=== PATIENT | female | born 1965 | race Caucasian/White ===

== ENCOUNTER 2017-08-01 04:02 | Emergency (ER) | END 2017-08-01 09:51 | disposition home or self-care (01) ==

== ENCOUNTER 2017-08-03 12:16 | Emergency (ER) | END 2017-08-03 16:32 | disposition home or self-care (01) ==

== ENCOUNTER 2017-11-30 21:18 | Emergency (ER) | END 2017-12-01 01:23 | disposition home or self-care (01) ==

== ENCOUNTER 2018-04-28 03:38 | Emergency (ER) | payer OTHER ==
[~2018-04-28] VITALS: Wt 57.8 kg
[~2018-04-28 03:38] MED LIST: ACET-915; ACET500C5 PO; DENIES; DIC20 PO; HYDR-3980 PO; MAGN296S40 PO; NAPR-985 PO; OMEP40CA6 PO; ONDA4TAB14 PO; POLY17PO6 PO
--- NOTE | 2018-04-28 03:49 | ERD ---
ER Documentation Chief Complaint Chief Complaint AP HPI The patient is a 52-year-old female, presenting to the ER because of epigastric abdominal pain that began around 8 PM tonight, had similar symptoms previously, denies fever, chills, neck pain, chest pain, dyspnea, vomiting, dysuria, diarrhea. She is smokes, denies drinking, denies illicit drug Past medical history: None Past surgical history: Cholecystectomy, ROS All systems reviewed and are negative except as per history of present illness. Medications Home Meds Active Scripts Pantoprazole* (Protonix*) 40 Mg Tablet., 40 MG PO DAILY, #20 TAB Prov:GIUSEPPE CAZARES MD 04/28/18 Discontinued Reported Medications Acetaminophen* (Tylenol*) 325 Mg Tab 05/24/10 [Denies] No Conflict Check 06/05/09 Discontinued Scripts Naproxen* (Naprosyn*) 500 Mg Tablet, 500 MG PO BID PRN for PAIN AND/OR INFLAMMATION for 10 Days, #20 TAB Prov:KIZZYSINDY 12/01/17 Acetaminophen* (Tylophen*) 500 Mg Capsule, 1 CAP PO Q6H PRN for PAIN AND OR ELEVATED TEMP, #20 CAP Prov:DEVENDRA NINA MD 08/03/17 Ondansetron (Ondansetron Odt) 4 Mg Tab.rapdis, 4 MG PO Q6H PRN for NAUSEA AND/OR VOMITING, #10 TAB Prov:DEVENDRA NINA MD 08/03/17 Polyethylene Glycol* (Miralax*) 17 Gm Powd.pack, 17 GM PO DAILY for CONSTIPATION, #7 Prov:MILLY LOVE DO 08/01/17 Magnesium Citrate* (Magnesium Citrate*) 296 Ml Solution, 296 ML PO ONCE, #1 BOTTLE Prov:MILLY LOVE DO 08/01/17 Omeprazole* (Omeprazole*) 40 Mg Capsule., 40 MG PO DAILY, #14 CAP Prov:PIOTR LEON DO 08/01/17 Hydrocodone/Acetaminophen ([place] 10-325 Tablet) 1 Each Tablet, 1 TAB PO Q6H PRN for PAIN, #20 TAB Prov:PIOTR LEON DO 08/01/17 Ondansetron (Ondansetron Odt) 4 Mg Tab.rapdis, 4 MG PO Q6H PRN for NAUSEA AND/OR VOMITING, #10 TAB Prov:PIOTR LEON. DO 08/01/17 Dicyclomine HCl (Dicyclomine HCl) 20 Mg Tablet, 20 MG PO QID for PAIN, #20 Prov:PIOTR LEON. DO 08/01/17 Allergies Allergies: Coded Allergies: No Known Drug Allergy (Verified Allergy, Mild, 08/03/17) PMhx/Soc History of Surgery: Yes (abdominal surgery 7 years ago) Anesthesia Reaction: No Hx Neurological Disorder: No Hx Respiratory Disorders: No Hx Cardiac Disorders: No Hx Psychiatric Problems: No Hx Miscellaneous Medical Probl: No Hx Alcohol Use: No Hx Substance Use: No Hx Tobacco Use: Yes (5 sticks a day) Physical Exam Vitals Vital Signs Date Temp Pulse Resp B/P (MAP) Pulse Ox O2 O2 Flow FiO2 Time Delivery Rate 04/28/18 98.1 74 18 119/59 97 03:42 (79) Physical Exam Const: No acute distress. Head: Atraumatic. Eyes: Normal Conjunctiva. ENT: Normal External Ears, Nose and Mouth. Neck: Full range of motion. No meningismus. Resp: Clear to auscultation bilaterally. Cardio: Regular rate and rhythm. Abd: Soft, non distended, normal bowel sounds, minimal epigastric abdominal discomfort, no right lower quadrant/right upper quadrant/r igidity/rebound or CVA tenderness Skin: No petechiae or rashes. Back: No midline or flank tenderness. Ext: No cyanosis, or edema. Neur: Awake and alert. No focal deficit Psych: Normal Mood and Affect. Result Diagram: 04/28/18 0419 04/28/18 0419 Results 24 hrs Laboratory Tests Test 04/28/18 04:19 04/28/18 04:32 04/28/18 04:34 White Blood Count 8.5 10^3/ul Red Blood Count 4.32 10^6/ul Hemoglobin 13.5 g/dl Hematocrit 39.9 % Mean Corpuscular Volume 92.4 fl Mean Corpuscular Hemoglobin 31.3 pg Mean Corpuscular 33.8 g/dl Hemoglobin Concent Red Cell Distribution Width 13.1 % Platelet Count 234 10^3/UL Mean Platelet Volume 9.5 fl Immature Granulocytes % 0.200 % Neutrophils % 64.2 % Lymphocytes % 25.3 % Monocytes % 8.0 % Eosinophils % 1.9 % Basophils % 0.4 % Nucleated Red Blood Cells % 0.0 /100WBC Immature Granulocytes # 0.020 10^3/ul Neutrophils # 5.4 10^3/ul Lymphocytes # 2.1 10^3/ul Monocytes # 0.7 10^3/ul Eosinophils # 0.2 10^3/ul Basophils # 0.0 10^3/ul Nucleated Red Blood Cells # 0.0 10^3/ul Sodium Level 143 mmol/L Potassium Level 4.1 mmol/L Chloride Level 104 mmol/L Carbon Dioxide Level 25 mmol/L Anion Gap 14 Blood Urea Nitrogen 23 mg/dl Creatinine 0.64 mg/dl Est Glomerular Filtrat Rate mL/min > 60 mL/min Glucose Level 116 mg/dl Calcium Level 9.5 mg/dl Total Bilirubin 0.0 mg/dl Direct Bilirubin 0.00 mg/dl Indirect Bilirubin 0.0 mg/dl Aspartate Amino Transf (AST/SGOT) 64 IU/L Alanine 112 IU/L Aminotransferase (ALT/SGPT) Alkaline Phosphatase 119 IU/L Total Protein 7.1 g/dl Albumin 4.4 g/dl Globulin 2.70 g/dl Albumin/Globulin Ratio 1.62 Lipase 194 U/L Bedside Urine pH (LAB) 6.5 Bedside Urine Protein (LAB) Trace Bedside Urine Glucose (UA) Negative Bedside Urine Ketones (LAB) Negative Bedside Urine Blood Trace-intact Bedside Urine Nitrite (LAB) Negative Bedside Urine Leukocyte Esterase Negative (L POC Beta HCG, Qualitative NEGATIVE Current Medications Medications Dose Sig/Joellen Start Time Status Last (Trade) Ordered Route PRN Stop Time Admin Dose Reason Admin Sodium 1,000 ml @ Q1H ONCE 04/28/18 DC 04/28/18 Chloride 1,000 mls/hr IV 04:00 04:55 04/28/18 04:59 40 ml ONCE ONCE 04/28/18 DC 04/28/18 Miscellaneous PO 04:00 04:55 Medication 04/28/18 04:01 (Gi Cocktail (2)) Ketorolac 30 mg ONCE STAT 04/28/18 DC 04/28/18 Tromethamine IV 04:50 04:56 (Toradol) 04/28/18 04:51 Procedures/MDM MEDICAL MAKING DECISION: The patient is a 52-year-old female, presenting with acute epigastric abdominal pain, was treated with 1 L normal saline, gastrointestinal cocktail, Toradol 30 mg IV for pain with good response, stable for present follow-up The differential diagnoses considered include but are not limited to choledocholithiasis, cholangitis, pancreatitis, hepatitis, gastritis, peptic ulcer disease, gastric ulcer, appendicitis, cystitis, diverticulitis, partial small bowel obstruction. Departure Diagnosis: Primary Impression: Abdominal pain Condition: Good Comments She was discharged with Protonix I discussed the findings with the patient. I advised the patient to follow-up with the primary physician in about 2-3 days, sooner if needed and return if any concern. Disclaimer: Inadvertent spelling and grammatical errors are likely due to EHR/dictation software use and do not reflect on the overall quality of patient care. Also, please note that the electronic time recorded on this note does not necessarily reflect the actual time of the patient encounter. GIUSEPPE CAZARES MD Apr 28, 2018 03:49
[2018-04-28] MEDS ORDERED: LIDOCAINE/MYLANTA 40 ML BTL PO ONE (04:00)
[2018-04-28] MEDS ORDERED: SOD CHLORIDE 0.9% 1,000 ML IV ONE (04:00)
[2018-04-28] MEDS ORDERED: KETOROLAC 30 MG INJ IV STA (04:50)
[2018-04-28] MEDS ORDERED: PANT40TA3 PO (04:59)
[2018-04-28 06:15] VITALS: BP 95/53; PULSE 69; RESP 18
== END 2018-04-28 06:19 | disposition home or self-care (01) ==
LOC: E/R 03:38
DX: R10.13 Epigastric pain (principal); Z87.891 Personal history of nicotine dependence
CPT/HCPCS: 36415; 80053; 81003; 81025; 83690; 85025; 96374; J1885; J7030; Z7502; Z7610